=== PATIENT | male | born 1980 | race American Indian/Alaskan Native ===

== ENCOUNTER 2019-07-13 19:58 | Emergency (ER) | payer OTHER ==
[~2019-07-13] VITALS: Ht 167.6 cm; Wt 84.5 kg
[2019-07-13 20:17] VITALS: BP 131/82
[2019-07-13] MEDS ORDERED: CIPR10DR LEFT EAR (21:52)
[2019-07-13] MEDS ORDERED: ONDA4TAB6 PO (21:54)
== END 2019-07-13 22:23 | disposition home or self-care (01) ==
LOC: ER 19:59
DX: H60.502 Unspecified acute noninfective otitis externa, left ear (principal); R51 Headache; R11.0 Nausea; Z88.1 Allergy status to other antibiotic agents
CPT/HCPCS: 99283

== ENCOUNTER 2020-01-13 23:19 | Emergency (ER) | payer MEDICAID ==
[~2020-01-13] VITALS: Ht 167.6 cm; Wt 86.4 kg
[~2020-01-13 23:19] MED LIST: ONDA4TAB6 PO
[2020-01-13 23:26] VITALS: BP 112/62
[2020-01-13] MEDS ORDERED: ketorolac trometh. 30mg/ml inj. IM ONE (23:50)
== END 2020-01-14 00:26 | disposition home or self-care (01) ==
LOC: ER 23:19
DX: M25.562 Pain in left knee (principal); F17.210 Nicotine dependence, cigarettes, uncomplicated; F12.10 Cannabis abuse, uncomplicated; Z79.899 Other long term (current) drug therapy; X58.XXXA Exposure to other specified factors, initial encounter; Y93.89 Activity, other specified; Y92.89 Other specified places as the place of occurrence of the external cause; Y99.8 Other external cause status
CPT/HCPCS: 96372; 99283; J1885